=== PATIENT | female | born 1980 | race Caucasian/White ===

== ENCOUNTER 2017-02-24 07:52 | Outpatient (CLI) | payer OTHER | END 2017-02-24 07:53 | disposition home or self-care (01) | DX: N89.9 Noninflammatory disorder of vagina, unspecified (principal) ==

== ENCOUNTER 2017-03-24 13:50 | Outpatient (CLI) | payer OTHER ==
[2017-03-26 13:41] LABS: TEST RESULT REPORT (())
== END 2017-03-24 13:51 | disposition home or self-care (01) ==
LOC: LAB.WCP 13:50
PROVIDERS: ATTEND Physician Assistant Medical
DX: N89.9 Noninflammatory disorder of vagina, unspecified (principal)
CPT/HCPCS: 81599; 87255

== ENCOUNTER 2018-01-18 08:00 | Outpatient (CLI) | payer OTHER | END 2018-01-18 08:01 | disposition home or self-care (01) | LOC: LAB.R 08:00 | PROVIDERS: ATTEND Physician Assistant Medical | DX: N39.0 Urinary tract infection, site not specified (principal) | CPT/HCPCS: 87077; 87086 ==

== ENCOUNTER 2018-01-22 00:22 | Emergency (ER) | payer OTHER ==
[2018-01-22 01:04] LABS: BILIRUBIN,URINE NEGATIVE (NEGATIVE); GLUCOSE, URINE (UA) >=1000 mg/dL (NEGATIVE); KETONES,URINE (UA) >=80 mg/dL (NEGATIVE); LEUKOCYTE ESTERASE, URINE TRACE (NEGATIVE); NITRITE,URINE POSITIVE (NEGATIVE); OCCULT BLOOD,URINE LARGE (NEGATIVE); PH,URINE 5.5 PH (5.0-7.5); PROTEIN,URINE 100 mg/dL (NEGATIVE); UROBILINOGEN,URINE 0.2 (NORMAL) E.U./dL (NORMAL)
[2018-01-22 01:05] LABS: CLARITY,URINE HAZY (CLEAR); HCG UR QUAL NEGATIVE
[2018-01-22 01:11] LABS: BACTERIA,URINE Few /HPF (None Seen); SQUAMOUS EPITHELIAL CELL,UR FEW Squamous (<= Few)
[2018-01-22] MEDS ORDERED: SODIUM CHLORIDE 0.9% 1,000 ML IV ONE (01:14)
[2018-01-22] MEDS ORDERED: cefTRIAXone 1 GM in SODIUM CHLORIDE 0.9% MINIBAG 100 ML IV STA (01:14)
[2018-01-22] MEDS ORDERED: ONDANSETRON 4 MG/2 ML VIAL IVP STA (01:14)
[2018-01-22 01:31] LABS: VBG BASE EXCESS -1.9 mmol/L (-2 - +2); VBG PCO2 45.1 mmHg (41-51); VBG PH 7.345 (7.31-7.41); VBG PO2 24.7 mmHg (25-47); VBG TOTAL CO2 25.4 mmol/L (24-29)
[2018-01-22 01:34] LABS: BASOPHILS # (AUTO) 0.1 10^3/uL (0.0-0.1); BASOPHILS % (AUTO) 0.6 %; EOSINOPHILS # (AUTO) 0.1 10^3/uL (0.0-0.7); EOSINOPHILS % (AUTO) 0.6 %; HGB - HEMOGLOBIN 14.7 g/dL (12.0-16.0); LYMPHOCYTES # (AUTO) 2.1 10^3/uL (1.5-3.5); LYMPHOCYTES % (AUTO) 16.4 %; MEAN CORPUSCULAR HEMOGLOBIN 29.2 pg (27.0-31.0); MEAN CORPUSCULAR HGB CONC 34.9 g/dL (32.0-36.0); MEAN CORPUSCULAR VOLUME 83.5 fL (81.0-99.0); MEAN PLATELET VOLUME 9.5 fL (7.9-10.8); MONOCYTES # (AUTO) 0.7 10^3/uL (0.0-1.0); MONOCYTES % (AUTO) 5.6 %; NEUTROPHILS # (AUTO) 9.7 10^3/uL (1.5-6.6); NEUTROPHILS % (AUTO) 76.8 %; PLT - PLATELET COUNT 219 10^3/uL (130-450); RED BLOOD COUNT 5.05 10^6/uL (4.20-5.40); RED CELL DISTRIBUTION WIDTH 12.4 % (12.0-15.0); WHITE BLOOD COUNT 12.6 x10^3/uL (4.8-10.8)
[2018-01-22 01:35] LABS: KETONES, SERUM (ACETEST) SMALL (NEGATIVE)
[2018-01-22 01:42] LABS: ALBUMIN 4.4 g/dL (3.2-5.5); ALBUMIN/GLOBULIN RATIO 1.2 (1.0-2.2); ALKALINE PHOSPHATASE 48 IU/L (42-121); ALT ALANINE AMINOTRANSFERASE 36 IU/L (10-60); AST ASPARTATE AMINOTRANSFERASE 18 IU/L (10-42); BILIRUBIN,TOTAL 0.9 mg/dL (0.2-1.0); BUN - BLOOD UREA NITROGEN 12 mg/dL (6-20); CARBON DIOXIDE - CO2 24 mmol/L (21-32); CHLORIDE 98 mmol/L (101-111); CREATININE 0.6 mg/dL (0.4-1.0); GFR - MDRD 112 (>89); GLUCOSE 204 mg/dL (70-100); LIPASE 18 U/L (22-51); SODIUM 134 mmol/L (135-145)
--- NOTE | 2018-01-22 02:20 | ED Physician Documentation ---
PD HPI FEMALE - Stated complaint Stated Complaint: ABD/BACK PX,NAUSEA - Chief complaint Chief Complaint: Abd Pain - History obtained from History obtained from: Patient - History of Present Illness Timing - onset: How many weeks ago (1) Timing - details: Gradual onset, Still present Associated symptoms: Abdominal pain, Dysuria, Urinary frequency Similar symptoms before: Work up / diagnostics, Treatment Recently seen: Clinic - Additional information Additional information: Patient is a 37 year old diabetic female who is presenting to the emergency department for flank pain, nausea and urinary tract infection. Patient had symptoms of a uti starting about a week ago. Patient was started on cipro but her symptoms persisted. Patient went to a follow up appointment today with her primary and was told the cipro wasn't working and was started on keflex. patient states that she took one dose of the medication but the pain traveled up into her right flank. Patient states that she also felt nauseated but has not vomited. Review of Systems Constitutional: denies: Fever, Chills Eyes: reports: Reviewed and negative Ears: reports: Reviewed and negative Nose: reports: Reviewed and negative Throat: reports: Reviewed and negative Cardiac: reports: Reviewed and negative Respiratory: reports: Reviewed and negative GI: reports: Nausea. denies: Vomiting : reports: Dysuria, Frequency. denies: Discharge Skin: denies: Rash, Lesions Musculoskeletal: denies: Neck pain, Back pain Neurologic: reports: Reviewed and negative. denies: Generalized weakness, Focal weakness Immunocompromised: denies: Immunocompromised PD PAST MEDICAL HISTORY - Past Medical History Cardiovascular: None Respiratory: Other Neuro: None Endocrine/Autoimmune: Type 2 diabetes GI: None : None HEENT: None Psych: None Musculoskeletal: None - Past Surgical History Past Surgical History: Yes General: Cholecystectomy - Present Medications Home Medications: Ambulatory Orders Medication Instructions Recorded Confirmed metFORMIN [Glucophage] 500 mg PO ONCE 03/09/15 03/09/15 Canagliflozin [Invokana] 300 mg PO DAILY 04/16/15 04/16/15 Cephalexin [Keflex] 500 mg PO TID 01/22/18 01/22/18 Ondansetron Odt [Zofran] 4 mg TL Q6H PRN #14 tablet 01/22/18 - Allergies Allergies/Adverse Reactions: Allergies Allergy/AdvReac Type Severity Reaction Status Date / Time latex Allergy Rash Verified 01/22/18 00:36 - Social History Does the pt smoke?: Yes Smoking Status: Current every day smoker Does the pt drink ETOH?: Yes Does the pt have substance abuse?: No - Immunizations Immunizations are current?: No Immunizations: TDAP >10years/unknown - POLST Patient has POLST: No PD ED PE NORMAL - Vitals Vital signs reviewed: Yes - General General: Alert and oriented X 3 - HEENT HEENT: Atraumatic, PERRL - Neck Neck: Supple, no meningeal sign - Respiratory Respiratory: No respiratory distress - Abdomen Abdomen: Soft - Derm Derm: Normal color, Warm and dry - Extremities Extremities: No deformity, Normal ROM s pain - Neuro Neuro: Alert and oriented X 3, No motor deficit, No sensory deficit, Normal speech Eye Opening: Spontaneous Motor: Obeys Commands Verbal: Oriented GCS Score: 15 - Psych Psych: Normal mood PD ED PE EXPANDED - HEENT HEENT: Dry mucous membranes - Cardiac Cardiac: Tachy - Back Back: CVA TTP right Results - Vitals Vitals: Vital Signs - 24 hr 01/22/18 00:32 Temperature 36.7 C Heart Rate 99 Respiratory 18 Rate Blood Pressure 139/81 H O2 Saturation 99 Oxygen O2 Source Room air - Labs Labs: Laboratory Tests 01/22/18 01/22/18 01/22/18 00:55 01:25 01:25 WBC 12.6 H RBC 5.05 Hgb 14.7 Hct 42.2 MCV 83.5 MCH 29.2 MCHC 34.9 RDW 12.4 Plt Count 219 MPV 9.5 Neut # 9.7 H Lymph # 2.1 Glynn # 0.7 Eos # 0.1 Baso # 0.1 Absolute Nucleated RBC 0.00 Nucleated RBC % 0.0 VBG pH VBG pCO2 VBG pO2 VBG HCO3 VBG Total CO2 VBG O2 Saturation VBG Base Excess Sodium 134 L Potassium 3.9 Chloride 98 L Carbon Dioxide 24 Anion Gap 12.0 BUN 12 Creatinine 0.6 Estimated GFR (MDRD) 112 Glucose 204 H Calcium 9.0 Total Bilirubin 0.9 AST 18 ALT 36 Alkaline Phosphatase 48 Total Protein 8.0 Albumin 4.4 Globulin 3.6 Albumin/Globulin Ratio 1.2 Lipase 18 L Urine Color YELLOW Urine Clarity HAZY Urine pH 5.5 Ur Specific [place] 1.020 Urine Protein 100 H Urine Glucose (UA) >=1000 H Urine Ketones >=80 H Urine Occult Blood LARGE H Urine Nitrite POSITIVE H Urine Bilirubin NEGATIVE Urine Urobilinogen 0.2 (NORMAL) Ur Leukocyte Esterase TRACE H Urine RBC 11-25 H Urine WBC >25 H Ur Squamous Epith Cells FEW Squamous Urine Bacteria Few Ur Microscopic Review INDICATED Urine Culture Comments INDICATED Urine HCG, Qual NEGATIVE Serum Ketones SMALL H 01/22/18 01:25 WBC RBC Hgb Hct MCV MCH MCHC RDW Plt Count MPV Neut # Lymph # Glynn # Eos # Baso # Absolute Nucleated RBC Nucleated RBC % VBG pH 7.345 VBG pCO2 45.1 VBG pO2 24.7 L VBG HCO3 24.1 VBG Total CO2 25.4 VBG O2 Saturation 50.5 L VBG Base Excess -1.9 Sodium Potassium Chloride Carbon Dioxide Anion Gap BUN Creatinine Estimated GFR (MDRD) Glucose Calcium Total Bilirubin AST ALT Alkaline Phosphatase Total Protein Albumin Globulin Albumin/Globulin Ratio Lipase Urine Color Urine Clarity Urine pH Ur Specific [place] Urine Protein Urine Glucose (UA) Urine Ketones Urine Occult Blood Urine Nitrite Urine Bilirubin Urine Urobilinogen Ur Leukocyte Esterase Urine RBC Urine WBC Ur Squamous Epith Cells Urine Bacteria Ur Microscopic Review Urine Culture Comments Urine HCG, Qual Serum Ketones PD MEDICAL DECISION MAKING - ED course Complexity details: reviewed old records, reviewed results, re-evaluated patient , considered differential, d/w patient ED course: Patient was seen and examined at bedside. Urine was collected. Patient was found to have a urinary tract infection but also ketones. IV access was gained and labs were drawn. patient was treated with ns bolus, zofran and rocephin. When patient's labs came back there was no sign of dka. patient's symptoms improved and patient had no episodes of vomiting. Patient required no further work up and as stable for discharge with outpatient follow up. Departure - Departure Disposition: Home, Self Care Clinical Impression: Pyelonephritis Condition: Good Instructions: Pyelonephritis Dc Follow-Up: Lorenza Nolasco PA-C [Primary Care Provider] - Within 3 Days Prescriptions: Ondansetron Odt [Zofran] 4 mg TL Q6H PRN #14 tablet PRN Reason: Nausea / Vomiting Comments: Your symptoms today are being caused by a kidney infection. You should continue with the keflex and you can take the zofran as needed for nausea. You should follow up with your doctor if your symptoms don't improve. You should return to the emergency deaprtment for uncontrolled vomiting, fevers, or uncontrolled blood glucose.
[2018-01-22 02:43] VITALS: BP 134/85
== END 2018-01-22 03:01 | disposition home or self-care (01) ==
LOC: ED 00:22
DX: N12 Tubulo-interstitial nephritis, not specified as acute or chronic (principal); E11.9 Type 2 diabetes mellitus without complications; F17.200 Nicotine dependence, unspecified, uncomplicated; Z79.84 Long term (current) use of oral hypoglycemic drugs
CPT/HCPCS: 36415; 80053; 81001; 81003; 81025; 82009; 82803; 83690; 85025; 87077; 87086; 96365; 96375; 99283; 99284

== ENCOUNTER 2018-02-01 14:20 | Outpatient (CLI) | payer OTHER | END 2018-02-01 14:21 | disposition home or self-care (01) | LOC: LAB.WCP 14:20 | PROVIDERS: ATTEND Physician Assistant Medical | DX: E11.65 Type 2 diabetes mellitus with hyperglycemia (principal) | CPT/HCPCS: 87086 ==

== ENCOUNTER 2018-02-10 11:53 | Outpatient (CLI) | payer OTHER ==
[2018-02-10 18:52] LABS: BASOPHILS # (AUTO) 0.1 10^3/uL (0.0-0.1); BASOPHILS % (AUTO) 0.8 %; EOSINOPHILS % (AUTO) 0.2 %; HGB - HEMOGLOBIN 14.1 g/dL (12.0-16.0); LYMPHOCYTES # (AUTO) 1.9 10^3/uL (1.5-3.5); LYMPHOCYTES % (AUTO) 19.4 %; MEAN CORPUSCULAR HEMOGLOBIN 29.4 pg (27.0-31.0); MEAN CORPUSCULAR HGB CONC 34.2 g/dL (32.0-36.0); MEAN CORPUSCULAR VOLUME 85.8 fL (81.0-99.0); MONOCYTES # (AUTO) 0.6 10^3/uL (0.0-1.0); MONOCYTES % (AUTO) 6.2 %; NEUTROPHILS % (AUTO) 73.4 %; PLT - PLATELET COUNT 226 10^3/uL (130-450); RED CELL DISTRIBUTION WIDTH 12.7 % (12.0-15.0); WHITE BLOOD COUNT 9.5 x10^3/uL (4.8-10.8)
[2018-02-10 19:01] LABS: ALBUMIN 4.5 g/dL (3.2-5.5); ALBUMIN/GLOBULIN RATIO 1.4 (1.0-2.2); BILIRUBIN,TOTAL 1.1 mg/dL (0.2-1.0); CREATININE 0.6 mg/dL (0.4-1.0); TOTAL PROTEIN 7.7 g/dL (6.7-8.2)
== END 2018-02-10 11:54 | disposition home or self-care (01) ==
LOC: LAB.WCP 11:53
PROVIDERS: ATTEND Family Medicine
DX: R10.9 Unspecified abdominal pain (principal)
CPT/HCPCS: 36415; 80053; 82150; 83690; 85025

== ENCOUNTER 2018-02-11 20:35 | Outpatient (CLI) | payer OTHER ==
--- NOTE | 2018-02-12 11:38 | Ultrasound Report ---
ABDOMEN LIMITED ULTRASOUND: 02/11/2018 HISTORY: Right upper quadrant pain. COMPARISON: CT scan abdomen and pelvis 01/16/2015. TECHNIQUE: Real-time scanning by the pit furnace operator with saved static images reviewed. FINDINGS: Liver measures 15.2 cm in length. There is coarse heterogeneous hepatic echotexture without focal hepatic pathology. Normal directional portal venous blood flow. The gallbladder is surgically absent. Common bile duct 5 mm. No intrahepatic biliary ductal dilatation. Right kidney: 10.6 cm longitudinally, no hydronephrosis, stone, or mass. Free fluid: None. IMPRESSION: STATUS POST CHOLECYSTECTOMY. COARSE HEPATIC ECHOTEXTURE WITHOUT FOCAL LESIONS. OTHERWISE, NEGATIVE RIGHT UPPER QUADRANT ULTRASOUND. TD: 02/12/2018 11:36 MTDD
== END 2018-02-11 20:36 | disposition home or self-care (01) ==
LOC: DI 20:35
PROVIDERS: ATTEND Family Medicine
DX: R10.9 Unspecified abdominal pain (principal); Z90.49 Acquired absence of other specified parts of digestive tract
CPT/HCPCS: 76705

== ENCOUNTER 2018-06-03 08:00 | Outpatient (CLI) | payer OTHER | END 2018-06-03 08:01 | disposition home or self-care (01) | LOC: LAB.R 08:00 | PROVIDERS: ATTEND Physician Assistant Medical | DX: N12 Tubulo-interstitial nephritis, not specified as acute or chronic (principal) | CPT/HCPCS: 80053; 85025; 87077; 87086; 87181 ==

== ENCOUNTER 2018-06-03 08:00 | Outpatient (CLI) | payer OTHER ==
[2018-06-03 18:49] LABS: BASOPHILS # (AUTO) 0.1 10^3/uL (0.0-0.1); BASOPHILS % (AUTO) 0.9 %; HGB - HEMOGLOBIN 14.8 g/dL (12.0-16.0); LYMPHOCYTES # (AUTO) 2.6 10^3/uL (1.5-3.5); LYMPHOCYTES % (AUTO) 21.6 %; MEAN CORPUSCULAR HEMOGLOBIN 27.8 pg (27.0-31.0); MEAN CORPUSCULAR VOLUME 81.7 fL (81.0-99.0); MEAN PLATELET VOLUME 9.8 fL (7.9-10.8); MONOCYTES # (AUTO) 0.9 10^3/uL (0.0-1.0); MONOCYTES % (AUTO) 7.2 %; NEUTROPHILS # (AUTO) 8.3 10^3/uL (1.5-6.6); NEUTROPHILS % (AUTO) 70.3 %; PLT - PLATELET COUNT 180 10^3/uL (130-450); RED BLOOD COUNT 5.34 10^6/uL (4.20-5.40); RED CELL DISTRIBUTION WIDTH 14.5 % (12.0-15.0); WHITE BLOOD COUNT 11.8 x10^3/uL (4.8-10.8)
[2018-06-03 18:52] LABS: BILIRUBIN,TOTAL 1.2 mg/dL (0.2-1.0); CALCIUM 8.9 mg/dL (8.5-10.3); CREATININE 0.7 mg/dL (0.4-1.0); TOTAL PROTEIN 8.2 g/dL (6.7-8.2)
== END 2018-06-03 08:01 | disposition home or self-care (01) ==
LOC: LAB.R 08:00
PROVIDERS: ATTEND Physician Assistant Medical
DX: N12 Tubulo-interstitial nephritis, not specified as acute or chronic (principal)
CPT/HCPCS: 80053; 85025

== ENCOUNTER 2018-06-07 08:00 | Outpatient (CLI) | payer OTHER ==
[2018-06-07 19:05] LABS: BASOPHILS # (AUTO) 0.1 10^3/uL (0.0-0.1); BASOPHILS % (AUTO) 0.9 %; EOSINOPHILS # (AUTO) 0.1 10^3/uL (0.0-0.7); EOSINOPHILS % (AUTO) 1.3 %; HB2 TOTAL 13.8 g/dL; HEMOGLOBIN A1C 1.49 g/dL; LYMPHOCYTES # (AUTO) 2.5 10^3/uL (1.5-3.5); LYMPHOCYTES % (AUTO) 45.4 %; MEAN CORPUSCULAR HEMOGLOBIN 28.2 pg (27.0-31.0); MEAN CORPUSCULAR HGB CONC 33.7 g/dL (32.0-36.0); MEAN CORPUSCULAR VOLUME 83.8 fL (81.0-99.0); MEAN PLATELET VOLUME 9.6 fL (7.9-10.8); MONOCYTES # (AUTO) 0.4 10^3/uL (0.0-1.0); MONOCYTES % (AUTO) 7.6 %; NEUTROPHILS # (AUTO) 2.4 10^3/uL (1.5-6.6); NEUTROPHILS % (AUTO) 44.8 %; PLT - PLATELET COUNT 233 10^3/uL (130-450); RED BLOOD COUNT 4.61 10^6/uL (4.20-5.40); RED CELL DISTRIBUTION WIDTH 15.1 % (12.0-15.0); WHITE BLOOD COUNT 5.5 x10^3/uL (4.8-10.8)
== END 2018-06-07 08:01 | disposition home or self-care (01) ==
LOC: LAB.WCP 08:00
PROVIDERS: ATTEND Physician Assistant Medical
DX: E11.9 Type 2 diabetes mellitus without complications (principal); N12 Tubulo-interstitial nephritis, not specified as acute or chronic
CPT/HCPCS: 36415; 83036; 85025

== ENCOUNTER 2018-08-08 11:07 | Outpatient (CLI) | payer OTHER ==
[2018-08-08 11:47] LABS: CREATININE 0.6 mg/dL (0.4-1.0)
[2018-08-08] MEDS ORDERED: IOPAMIDOL-300 100 ML VIAL IVP ONE (13:20)
[2018-08-08] MEDS ORDERED: IOPAMIDOL-300 50 ML VIAL PO ONE (13:20)
--- NOTE | 2018-08-08 14:43 | CT Report ---
Reason: H/O HODGKINS LYMPHOMA Procedure Date: 08/08/2018 Accession Number: [id number] / [id number] Procedure: CT - Chest W/ CPT Code: FULL RESULT: EXAM: CT CHEST EXAM DATE: 08/08/2018 01:07 PM. CLINICAL HISTORY: H/O HODGKINS LYMPHOMA. COMPARISONS: CT neck and abdomen pelvis today. Chest radiograph 04/30/2008. TECHNIQUE: Routine helical CT imaging was performed through the chest. IV contrast: 100 cc Isovue-300. Reconstructions: Coronal and sagittal. In accordance with CT protocol optimization, one or more of the following dose reduction techniques were utilized for this exam: automated exposure control, adjustment of mA and/or KV based on patient size, or use of iterative reconstructive technique. FINDINGS: Lungs/Pleura: No nodules, bronchial thickening, consolidation, or edema. Pulmonary vasculature is normal. No pericardial or pleural effusion. No pneumothorax. Mediastinum: Normal. No adenopathy or masses. The heart and great vessels are normal. Small amount of injected air is noted in the right ventricle and main pulmonary artery. Bones: Unremarkable. Visualized Abdomen: See report of CT abdomen and pelvis performed concurrently. Other: Mild right axillary and retropectoral adenopathy with the largest axillary lymph node measuring 18 mm short axis diameter. IMPRESSION: Mild right axillary and retropectoral lymphadenopathy which is suspicious for lymphoma. RADIA
--- NOTE | 2018-08-08 14:44 | CT Report ---
Reason: H/O HODGKINS LYMPHOMA Procedure Date: 08/08/2018 Accession Number: [id number] / [id number] Procedure: CT - Abdomen/Pelvis W/ CPT Code: FULL RESULT: EXAM: CT ABDOMEN AND PELVIS EXAM DATE: 08/08/2018 01:07 PM. CLINICAL HISTORY: H/O HODGKINS LYMPHOMA. COMPARISONS: CT chest performed concurrently. CT abdomen pelvis 01/16/2015. TECHNIQUE: Routine helical CT imaging was performed through the abdomen and pelvis. IV contrast: CE. Enteric contrast: Yes. Reconstructions: Coronal and sagittal. In accordance with CT protocol optimization, one or more of the following dose reduction techniques were utilized for this exam: automated exposure control, adjustment of mA and/or KV based on patient size, or use of iterative reconstructive technique. FINDINGS: Lung Bases: Unremarkable. Liver: Normal. No masses. Gallbladder/Bile Ducts: Gallbladder surgically absent, as before. No ductal dilatation. Spleen: Normal. Pancreas: Normal. Adrenal Glands: Normal. Kidneys: Mild patchy hypoenhancement in the right kidney particularly in the mid to lower pole, similar to findings in 2015. There is asymmetric minimal right perinephric fat stranding which is new or increased from 2015. There is no hydronephrosis. There is minimal right hydroureter and ureteral wall hyperenhancement. No gross renal or ureteral calculi are identified. Left kidney unremarkable. Peritoneal Cavity/Bowel: Stomach and small bowel are unremarkable. Contrast reaches proximal ileum at the time of the scan. Retrocecal appendix is within normal limits. There is a small amount of formed stool in the colon. There is no pericolonic fat stranding. There is no lymphadenopathy. Normal sized retroperitoneal lymph nodes are present. There is trace dependent free fluid in the pelvis. There is no pneumoperitoneum. Pelvic Organs: Bladder normal in size and appearance. Uterus and left ovary unremarkable. There is a mildly rim-enhancing 2 cm right ovarian cyst suggesting a corpus luteum. Vasculature: No aneurysms or other significant abnormality. Bones: No significant abnormality. Other: Body wall is unremarkable. Normal sized bilateral inguinal lymph nodes are present. IMPRESSION: 1. No mass or lymphadenopathy is identified in the abdomen or pelvis. 2. Mild patchy hypoenhancement in the mid to lower right kidney, similar to findings in 2015. There is new or increased mild right perinephric fat stranding and right ureteral wall enhancement. These findings suggest pyelonephritis. RADIA The above findings were discussed with Dr. Keys by Dr. Jose Hodgson at 14:43 hrs on 08/08/18.
--- NOTE | 2018-08-08 15:48 | CT Report ---
Reason: H/O HODGKINS LYMPHOMA Procedure Date: 08/08/2018 Accession Number: [id number] / [id number] Procedure: CT - Neck Soft Tissue W/ CPT Code: FULL RESULT: EXAM: CT NECK WITH CONTRAST. COMPARISON: None. CLINICAL HISTORY: History of Hodgkin's lymphoma. TECHNIQUE: Axial images were acquired through the neck after intravenous administration of iodinated contrast CE. Coronal and Sagittal reconstructions are created from source data. In accordance with CT protocol optimization, one or more of the following dose reduction techniques were utilized for this exam: automated exposure control, adjustment of mA and/or KV based on patient size, or use of iterative reconstructive technique. FINDINGS: Visualized intracranial content shows no evident abnormality. There is reversal of the normal cervical lordosis, presumably positional. Mastoids are clear. Middle ears are clear. No retropharyngeal fluid. Epiglottis is unremarkable. Vallecula is unremarkable. Base of tongue is unremarkable. Visualized right upper chest shows no pulmonary nodules or masses. No pneumothorax. Visualized left upper chest shows no pulmonary nodules or masses. No pneumothorax. There is axillary adenopathy, particularly on the right, measuring up to approximately 16 mm (2, 123), no prior studies available for comparison. Thyroid is unremarkable. Largest left level 2/3 lymph node measures up to approximately 5.7 mm in short axis (2, 53). Again there is no direct comparison study available. No other cervical adenopathy or masses are identified. IMPRESSION: Right-sided axillary adenopathy, further evaluation deferred to chest CT performed today. 5.7 mm left-sided level 2/3 lymph node, without adenopathy meeting size criteria identified. No comparison neck CT is available.
== END 2018-08-08 11:08 | disposition home or self-care (01) ==
LOC: LAB 11:07
PROVIDERS: ATTEND Internal Medicine
DX: R59.0 Localized enlarged lymph nodes (principal); Z85.71 Personal history of Hodgkin lymphoma
CPT/HCPCS: 36415; 70491; 71260; 74177; 82565; 93306

== ENCOUNTER 2018-12-29 10:25 | Outpatient (CLI) | payer OTHER ==
--- NOTE | 2018-12-30 09:09 | Mammography Report ---
Reason: SCREENING / BASELINE PER DR. LIZ Procedure Date: 12/29/2018 Accession Number: [id number] / [id number] Procedure: [facility] - Screening Mammo w/Juan Luis CPT Code: FULL RESULT: EXAM: Screening Mammo w/Juan Luis DATE: 12/29/2018 11:11 AM CLINICAL HISTORY: Screening encounter. History of nulliparity. History of Hodgkin lymphoma status post chemotherapy. History of benign right breast biopsy in 2018. TECHNIQUE: Bilateral CC and MLO views were obtained. COMPARISON: No comparison imaging is available. FINDINGS: The breasts demonstrate scattered fibroglandular densities bilaterally. Typically benign skin calcification is seen in the inferior mammary fold on the right. No suspicious masses, clustered microcalcifications, or regions of architectural distortion are identified. IMPRESSION: Benign findings RECOMMENDATION: Routine annual screening unless otherwise clinically indicated. BIRADS CATEGORY 2: Benign findings STANDARD QUALIFYING STATEMENTS: 1. This examination was not reviewed with the aid of Computer-Aided Detection (CAD). 2. A negative or benign imaging report should not delay biopsy if clinically suspicious findings are present. Consider surgical consultation if warrented. More than 5% of cancers are not identified by imaging. 3. Dense breasts may obscure an underlying neoplasm. 4. This examination was reviewed with the aid of 3D breast imaging (tomosynthesis).
== END 2018-12-29 10:26 | disposition home or self-care (01) ==
LOC: DI 10:25
PROVIDERS: ATTEND Internal Medicine
DX: Z12.31 Encounter for screening mammogram for malignant neoplasm of breast (principal); Z08 Encounter for follow-up examination after completed treatment for malignant neoplasm; Z85.71 Personal history of Hodgkin lymphoma
CPT/HCPCS: 77063; 77067

== ENCOUNTER 2020-07-09 19:25 | Outpatient (CLI) | payer OTHER ==
--- NOTE | 2020-07-10 11:14 | XRAY Report ---
PROCEDURE: Foot 3 View LT INDICATIONS: Toe pain, left TECHNIQUE: 3 views of the foot were acquired. COMPARISON: None. FINDINGS: Bones: No acute fractures or dislocations. No suspicious bony lesions. Mild degenerative changes of the left great toe at the first metatarsophalangeal joint. Soft tissues: No tibiotalar joint effusion. Achilles tendon appears normal. IMPRESSION: No acute or subacute fractures identified. Degenerative changes of the left first metatarsophalangeal joint. Reviewed by: Watson Veliz MD on 07/10/2020 11:12 AM PDT Approved by: Watson Veliz MD on 07/10/2020 11:12 AM PDT Station ID: [id number]
== END 2020-07-09 19:26 | disposition home or self-care (01) ==
LOC: DI 19:25
PROVIDERS: ATTEND Physician Assistant Medical
DX: M19.072 Primary osteoarthritis, left ankle and foot (principal)

== ENCOUNTER 2020-09-11 10:58 | Outpatient (CLI) | payer OTHER ==
[2020-09-11 17:55] LABS: BASOPHILS # (AUTO) 0.1 10^3/uL (0.0-0.1); EOSINOPHILS # (AUTO) 0.1 10^3/uL (0.0-0.7); EOSINOPHILS % (AUTO) 2.2 %; HGB - HEMOGLOBIN 14.1 g/dL (12.0-16.0); LYMPHOCYTES # (AUTO) 2.6 10^3/uL (1.5-3.5); LYMPHOCYTES % (AUTO) 43.6 %; MEAN CORPUSCULAR HEMOGLOBIN 29.1 pg (27.0-31.0); MEAN CORPUSCULAR HGB CONC 32.9 g/dL (32.0-36.0); MEAN CORPUSCULAR VOLUME 88.5 fL (81.0-99.0); MEAN PLATELET VOLUME 12.3 fL (7.9-10.8); MONOCYTES # (AUTO) 0.4 10^3/uL (0.0-1.0); NEUTROPHILS # (AUTO) 2.8 10^3/uL (1.5-6.6); PLT - PLATELET COUNT 203 10^3/uL (130-450); RED BLOOD COUNT 4.85 10^6/uL (4.20-5.40); RED CELL DISTRIBUTION WIDTH 12.4 % (12.0-15.0)
[2020-09-11 18:14] LABS: CREATININE,URINE 108.7 mg/dL; MICROALBUM/CREATININE RATIO,UR 74.5 ug/mg (<30.0); MICROALBUMIN,URINE 8.1 mg/dL (0-300.0)
[2020-09-11 18:16] LABS: ALBUMIN 4.3 g/dL (3.2-5.5); ALBUMIN/GLOBULIN RATIO 1.4 (1.0-2.2); ALKALINE PHOSPHATASE 40 IU/L (42-121); ALT ALANINE AMINOTRANSFERASE 20 IU/L (10-60); AST ASPARTATE AMINOTRANSFERASE 14 IU/L (10-42); BILIRUBIN,TOTAL 0.7 mg/dL (0.2-1.0); BUN - BLOOD UREA NITROGEN 17 mg/dL (6-20); CALCIUM 9.3 mg/dL (8.5-10.3); CARBON DIOXIDE - CO2 26 mmol/L (21-32); CHLORIDE 102 mmol/L (101-111); CHOL/HDL RATIO 2.8 (<4.4); CHOLESTEROL 160 mg/dL; CREATININE 0.7 mg/dL (0.4-1.0); GLUCOSE 288 mg/dL (70-100); HDL CHOLESTEROL 57 mg/dL; LDL CHOLESTEROL,CALCULATED 86 mg/dL; LDL/HDL RATIO 1.5 (<4.4); SODIUM 137 mmol/L (135-145); TOTAL PROTEIN 7.3 g/dL (6.7-8.2); VLDL CHOLESTEROL 17 mg/dL
[2020-09-11 19:49] LABS: HEMOGLOBIN A1c% 9.6 % (4.27-6.07)
== END 2020-09-11 23:59 | disposition home or self-care (01) ==
LOC: LAB.WCP 10:58
PROVIDERS: ATTEND Physician Assistant Medical
DX: E11.9 Type 2 diabetes mellitus without complications (principal); E78.5 Hyperlipidemia, unspecified; E03.9 Hypothyroidism, unspecified
CPT/HCPCS: 36415; 80053; 80061; 82043; 82570; 83036; 83721; 84443; 85025

== ENCOUNTER 2020-11-08 08:00 | Outpatient (CLI) | payer OTHER ==
[2020-11-08 22:44] LABS: TRICHOMONAS VAGINALIS DNA NEGATIVE (NEGATIVE)
== END 2020-11-08 23:59 ==
LOC: LAB.R 08:00
PROVIDERS: ATTEND Obstetrics & Gynecology
DX: Z11.3 Encounter for screening for infections with a predominantly sexual mode of transmission (principal); R87.619 Unspecified abnormal cytological findings in specimens from cervix uteri
CPT/HCPCS: 87491; 87591; 87661

== ENCOUNTER 2021-11-16 08:00 | Outpatient (CLI) | payer OTHER | END 2021-11-16 23:59 | LOC: LAB.N 08:00 | PROVIDERS: ATTEND Physician Assistant Medical | DX: R05.9 Cough, unspecified (principal); R50.9 Fever, unspecified; Z20.822 Contact with and (suspected) exposure to COVID-19 ==

== ENCOUNTER 2022-01-25 10:29 | Outpatient (CLI) | payer OTHER ==
[2022-01-25 14:05] LABS: BASOPHILS # (AUTO) 0.1 10^3/uL (0.0-0.1); BASOPHILS % (AUTO) 1.1 %; EOSINOPHILS # (AUTO) 0.1 10^3/uL (0.0-0.7); EOSINOPHILS % (AUTO) 1.7 %; HCT - HEMATOCRIT 41.4 % (37.0-47.0); HGB - HEMOGLOBIN 14.2 g/dL (12.0-16.0); LYMPHOCYTES # (AUTO) 3.1 10^3/uL (1.5-3.5); LYMPHOCYTES % (AUTO) 42.9 %; MEAN CORPUSCULAR HEMOGLOBIN 29.3 pg (27.0-31.0); MEAN CORPUSCULAR HGB CONC 34.3 g/dL (32.0-36.0); MEAN CORPUSCULAR VOLUME 85.4 fL (81.0-99.0); MEAN PLATELET VOLUME 12.4 fL (7.9-10.8); MONOCYTES # (AUTO) 0.5 10^3/uL (0.0-1.0); MONOCYTES % (AUTO) 7.4 %; NEUTROPHILS # (AUTO) 3.4 10^3/uL (1.5-6.6); NEUTROPHILS % (AUTO) 46.8 %; PLT - PLATELET COUNT 206 10^3/uL (130-450); RED BLOOD COUNT 4.85 10^6/uL (4.20-5.40); WHITE BLOOD COUNT 7.3 x10^3/uL (4.8-10.8)
[2022-01-25 14:16] LABS: CREATININE,URINE 68.9 mg/dL; MICROALBUM/CREATININE RATIO,UR 36.3 ug/mg (<30.0); MICROALBUMIN,URINE 2.5 mg/dL (0-300.0)
[2022-01-25 14:33] LABS: THYROID STIMULATING HORMONE 7.2 uIU/mL (0.34-5.60)
[2022-01-25 14:38] LABS: ALBUMIN 4.3 g/dL (3.2-5.5); ALBUMIN/GLOBULIN RATIO 1.5 (1.0-2.2); ALKALINE PHOSPHATASE 36 IU/L (42-121); ALT ALANINE AMINOTRANSFERASE 17 IU/L (10-60); AST ASPARTATE AMINOTRANSFERASE 14 IU/L (10-42); BILIRUBIN,TOTAL 0.7 mg/dL (0.2-1.0); BUN - BLOOD UREA NITROGEN 16 mg/dL (6-20); CALCIUM 9.5 mg/dL (8.5-10.3); CARBON DIOXIDE - CO2 27 mmol/L (21-32); CHLORIDE 97 mmol/L (101-111); CHOL/HDL RATIO 3.4 (<4.4); CHOLESTEROL 171 mg/dL; CREATININE 0.7 mg/dL (0.4-1.0); GFR - MDRD 92 (>89); GLUCOSE 396 mg/dL (70-100); HDL CHOLESTEROL 50 mg/dL; LDL CHOLESTEROL,CALCULATED 87 mg/dL; LDL/HDL RATIO 1.7 (<4.4); POTASSIUM 4.6 mmol/L (3.5-5.0); SODIUM 133 mmol/L (135-145); TOTAL PROTEIN 7.2 g/dL (6.7-8.2); TRIGLYCERIDES 170 mg/dL; VLDL CHOLESTEROL 34 mg/dL
[2022-01-25 18:45] LABS: ESTIMATED AVERAGE GLUCOSE 301 mg/dL (70-100); HEMOGLOBIN A1c% 12.1 % (4.27-6.07)
== END 2022-01-25 10:30 | disposition home or self-care (01) ==
LOC: LAB.N 10:29
PROVIDERS: ATTEND Nurse Practitioner
DX: E78.5 Hyperlipidemia, unspecified (principal); E11.8 Type 2 diabetes mellitus with unspecified complications; R53.83 Other fatigue; C81.90 Hodgkin lymphoma, unspecified, unspecified site; E03.9 Hypothyroidism, unspecified
CPT/HCPCS: 36415; 80053; 80061; 82043; 82570; 82607; 83036; 83615; 83721; 84439; 84443; 85025

== ENCOUNTER 2023-05-07 08:16 | Outpatient (CLI) | payer OTHER ==
--- NOTE | 2023-05-08 09:35 | Mammography Report ---
BILATERAL DIGITAL SCREENING MAMMOGRAM 3D/2D: 05/07/2023 CLINICAL: Routine screening. Comparison is made to exam dated: 12/29/2018 mammogram - [facility]. Both breasts are heterogeneously dense, which may obscure small masses (category c / 51-75% glandular tissue). No significant masses, calcifications, or other findings are seen in either breast. There has been no significant interval change. IMPRESSION: NEGATIVE There is no mammographic evidence of malignancy. A 1 year screening mammogram is recommended. Based on the Tyrer Cuzick model (a risk assessment model) the patients lifetime risk is 15.3% and he r 10 year risk is 2.7%. According to the ACR, ACS, and NCCN guidelines, an annual breast MRI exam kory ng with mammogram is recommended if the patients lifetime risk is 20% or greater. This exam was interpreted at Station ID: [id number]. NOTE: For mammograms, a report in lay terms will be sent to the patient. Approximately 15% of breast malignancies will not be visualized mammographically. In the management of a palpable breast mass, a negative mammogram must not discourage biopsy of a clinically suspicious lesion. Electronically Signed By: Elmo gant/ingris:05/07/2023 12:32:30 letter sent: No_Letter ACR BI-RADS Category 1: Negative 3341F PARENCHYMAL PATTERN: (D) - The breast(s) demonstrate(s) heterogeneously dense fibroglandular chanelle han. BI-RADS CATEGORY: (1) - 1 Mammogram [id number] 1 year screening LATERALITY: (B)
== END 2023-05-07 08:17 | disposition home or self-care (01) ==
LOC: DI.N 08:16
PROVIDERS: ATTEND Internal Medicine Hematology & Oncology
DX: Z12.31 Encounter for screening mammogram for malignant neoplasm of breast (principal)

== ENCOUNTER 2023-06-01 11:21 | Outpatient (CLI) | payer OTHER ==
[2023-06-01 18:46] LABS: ESTIMATED AVERAGE GLUCOSE 289 mg/dL (70-100); HEMOGLOBIN A1c% 11.7 % (4.27-6.07)
== END 2023-06-01 11:22 | disposition home or self-care (01) ==
LOC: LAB.N 11:21
PROVIDERS: ATTEND Nurse Practitioner
DX: E11.8 Type 2 diabetes mellitus with unspecified complications (principal)
CPT/HCPCS: 36415; 83036

== ENCOUNTER 2023-08-18 14:52 | Outpatient (CLI) | payer OTHER ==
[2023-08-18 18:08] LABS: ALBUMIN 4.3 g/dL (3.2-5.5); ALBUMIN/GLOBULIN RATIO 1.6 (1.0-2.2); ALKALINE PHOSPHATASE 39 IU/L (42-121); ALT ALANINE AMINOTRANSFERASE 14 IU/L (10-60); AST ASPARTATE AMINOTRANSFERASE 13 IU/L (10-42); BILIRUBIN,TOTAL 0.6 mg/dL (0.2-1.0); BUN - BLOOD UREA NITROGEN 11 mg/dL (6-20); CALCIUM 9.1 mg/dL (8.5-10.3); CARBON DIOXIDE - CO2 28 mmol/L (21-32); CHLORIDE 106 mmol/L (101-111); CHOL/HDL RATIO 2.7 (<4.4); CHOLESTEROL 141 mg/dL; CREATININE 0.7 mg/dL (0.6-1.3); GFR - MDRD 91 (>89); GLUCOSE 128 mg/dL (74-104); HDL CHOLESTEROL 53 mg/dL; LDL CHOLESTEROL,CALCULATED 71 mg/dL; LDL/HDL RATIO 1.3 (<4.4); SODIUM 139 mmol/L (135-145); TRIGLYCERIDES 87 mg/dL (48-352); VLDL CHOLESTEROL 17 mg/dL
[2023-08-18 21:25] LABS: ESTIMATED AVERAGE GLUCOSE 220 mg/dL (70-100); HEMOGLOBIN A1c% 9.3 % (4.27-6.07)
== END 2023-08-18 14:53 | disposition home or self-care (01) ==
LOC: LAB.N 14:52
PROVIDERS: ATTEND Physician Assistant Medical
DX: E11.8 Type 2 diabetes mellitus with unspecified complications (principal); E78.5 Hyperlipidemia, unspecified
CPT/HCPCS: 36415; 80053; 80061; 83036; 83721

== ENCOUNTER 2023-11-24 15:44 | Outpatient (CLI) | payer OTHER ==
[2023-11-24 19:48] LABS: CALCIUM 8.9 mg/dL (8.5-10.3); CREATININE 0.8 mg/dL (0.6-1.3); POTASSIUM 3.8 mmol/L (3.5-4.5)
[2023-11-24 21:45] LABS: ESTIMATED AVERAGE GLUCOSE 177 mg/dL (70-100); HEMOGLOBIN A1c% 7.8 % (4.27-6.07)
== END 2023-11-24 15:45 | disposition home or self-care (01) ==
LOC: LAB.N 15:44
PROVIDERS: ATTEND Physician Assistant Medical
DX: E11.8 Type 2 diabetes mellitus with unspecified complications (principal)
CPT/HCPCS: 36415; 80048; 83036

== ENCOUNTER 2024-02-25 12:39 | Outpatient (CLI) | payer OTHER ==
[2024-02-25 17:43] LABS: BASOPHILS # (AUTO) 0.1 10^3/uL (0.0-0.1); EOSINOPHILS # (AUTO) 0.1 10^3/uL (0.0-0.7); EOSINOPHILS % (AUTO) 1.2 %; HCT - HEMATOCRIT 42.3 % (37.0-47.0); HGB - HEMOGLOBIN 14.1 g/dL (12.0-16.0); LYMPHOCYTES # (AUTO) 3.2 10^3/uL (1.5-3.5); LYMPHOCYTES % (AUTO) 43.6 %; MEAN CORPUSCULAR HEMOGLOBIN 28.7 pg (27.0-31.0); MEAN CORPUSCULAR HGB CONC 33.3 g/dL (32.0-36.0); MEAN CORPUSCULAR VOLUME 86.2 fL (81.0-99.0); MEAN PLATELET VOLUME 12.2 fL (7.9-10.8); MONOCYTES # (AUTO) 0.5 10^3/uL (0.0-1.0); MONOCYTES % (AUTO) 7.2 %; NEUTROPHILS # (AUTO) 3.4 10^3/uL (1.5-6.6); NEUTROPHILS % (AUTO) 46.9 %; PLT - PLATELET COUNT 238 10^3/uL (130-450); RED BLOOD COUNT 4.91 10^6/uL (4.20-5.40); RED CELL DISTRIBUTION WIDTH 12.3 % (12.0-15.0); WHITE BLOOD COUNT 7.2 x10^3/uL (4.8-10.8)
[2024-02-25 17:55] LABS: ALBUMIN 4.6 g/dL (3.2-5.5); ALBUMIN/GLOBULIN RATIO 1.6 (1.0-2.2); ALKALINE PHOSPHATASE 40 IU/L (42-121); ALT ALANINE AMINOTRANSFERASE 14 IU/L (10-60); AST ASPARTATE AMINOTRANSFERASE 13 IU/L (10-42); BILIRUBIN,TOTAL 0.7 mg/dL (0.2-1.0); BUN - BLOOD UREA NITROGEN 15 mg/dL (6-20); CALCIUM 9.6 mg/dL (8.5-10.3); CARBON DIOXIDE - CO2 26 mmol/L (21-32); CHLORIDE 104 mmol/L (101-111); CHOLESTEROL 160 mg/dL; CREATININE 0.7 mg/dL (0.6-1.3); GFR - MDRD 91 (>89); GLUCOSE 147 mg/dL (74-104); HDL CHOLESTEROL 53 mg/dL; LDL CHOLESTEROL,CALCULATED 87 mg/dL; LDL/HDL RATIO 1.6 (<4.4); POTASSIUM 3.9 mmol/L (3.5-4.5); SODIUM 136 mmol/L (135-145); TOTAL PROTEIN 7.5 g/dL (6.4-8.9); TRIGLYCERIDES 102 mg/dL (48-352); VLDL CHOLESTEROL 20 mg/dL
[2024-02-25 17:59] LABS: CREATININE,URINE 186.4 mg/dL; MICROALBUM/CREATININE RATIO,UR 32.2 ug/mg (<30.0)
[2024-02-25 18:07] LABS: THYROID STIMULATING HORMONE 3.26 uIU/mL (0.34-5.60)
[2024-02-25 20:09] LABS: ESTIMATED AVERAGE GLUCOSE 180 mg/dL (70-100); HEMOGLOBIN A1c% 7.9 % (4.27-6.07)
== END 2024-02-25 12:40 | disposition home or self-care (01) ==
LOC: LAB.N 12:39
PROVIDERS: ATTEND Physician Assistant Medical
DX: Z00.00 Encounter for general adult medical examination without abnormal findings (principal); E11.8 Type 2 diabetes mellitus with unspecified complications; E78.5 Hyperlipidemia, unspecified
CPT/HCPCS: 36415; 80053; 80061; 82043; 82570; 83036; 83721; 84443; 85025

== ENCOUNTER 2024-06-18 08:00 | Outpatient (CLI) | payer OTHER | END 2024-06-18 23:59 | disposition home or self-care (01) | LOC: LAB.N 08:00 | PROVIDERS: ATTEND Physician Assistant Medical | DX: R23.8 Other skin changes (principal) | CPT/HCPCS: 87255 ==